=== PATIENT | female | born 1935 | race Asian ===

== ENCOUNTER 2016-11-17 04:23 | Observation (INO) | payer MEDICARE, OTHER ==
--- NOTE | ~2016-11-17 | EKG ---
PATIENT: YENI MORA UNIT #: [id number] Ventricular Rate: 82 BPM Atrial Rate: 82 BPM P-R Interval: 148 ms QRS Duration: 84 ms Q-T Interval: 378 ms QTC Calculation(Bezet): 441 ms P [place]: 73 degrees Calculated R [place]: -24 degrees Calculated T [place]: 25 degrees Diagnosis Line: Normal sinus rhythm Diagnosis Line: Inferior infarct , age undetermined Diagnosis Line: Abnormal ECG Diagnosis Line: No previous ECGs available Diagnosis Line: Confirmed by ELIZABETH HOWELL MD ([id number]) on 11/17/2016 Diagnosis Line: 10:34:08 PM INTERPRETING MD: DANTE SCHRADER
--- NOTE | ~2016-11-17 | DS ---
Unit #: [id number] #: [id number] Patient: YENI MORA [id number] [address] [address] [id number] I MR#: [id number] NAME: YENI MORA ROOM: 98006 Age: 81 Sex: F Admission Date: 11/17/2016 : 1935 Discharge Date: 11/17/2016 Attending Physician: Bay Willson M.D. Primary Care Physician: No Primary Care Physician DISCHARGE SUMMARY DISCHARGE DIAGNOSES 1. Darkened stool with a positive Hemoccult, stable hemoglobin and hematocrit. 2. Urinary tract infection with dysuria. 3. Essential hypertension. 4. Dyslipidemia. 5. History of major depression. CONSULTANTS None. IMAGING STUDIES None. LABS ON DAY OF DISCHARGE Patient's last glucose 119, BUN 30, creatinine 0.8, sodium 145, potassium 3.9, chloride 106, CO2 26, calcium 9.3, total protein 7.5, albumin 3.5, total bilirubin 0.4, AST 39, ALT 20, alk phos 90, amylase 37, lipase 32, lactic acid was 1.1. CBC - WBC was 6.3, rbc's 3.86, hemoglobin 11.4, hematocrit 35.1, MCV 93.2, MCH 30.8, MCHC 33.1, RDW is 13.5, platelets is 179. PT is 9.2. Urinalysis consistent with a UTI. HOSPITAL COURSE The patient is a pleasant 81-year-old [place] female with a past medical history of major depression, dyslipidemia, essential hypertension, who was brought to the emergency department by her grandchildren, with the concern that she has not voided since last night. The patient lives at home with her children and there were concern about a couple of weeks ago she had a big bowel movement that was very darkened. There was concern at this time with dysuria and she was then brought to the emergency department. The patient denied flank pain, back pain, fever, nausea, vomiting or diarrhea. She had also denied epigastric pain. Patient told me that with the incident of having the dark stool, she had eaten a pot of beans that was cooked for a whole week, but from now to then the symptoms have resolved. She denies hematochezia or melena at this time. With regard to her UTI, since there is no signs of sepsis, recommending that patient be discharged home with Ceftin 300 mg orally twice daily, as well as Flomax. She was able to void in the emergency department. I have spoken to patient and her grandchildren to please followup with the primary care physician within one to two weeks to look out for any signs of diarrhea or no urine output over a course of 24 hours. Asking that patient be given some contact information for Dr. Molina for any ongoing additional concerns for melena or hematochezia could be assessed as an outpatient by Dr. Molina. Unit #: [id number] #: [id number] Patient: YENI MORA DISCHARGE CONDITION Stable. DIET Heart healthy with no restriction. ACTIVITY Ambulate as was prior to hospitalization, as tolerated. DISCHARGE MEDICATIONS 1. Flomax 0.4 mg orally taken at bedtime. A full prescription was given for 14 days. 2. Paxil 10 mg orally at bedtime. 3. Lipitor 80 mg orally at bedtime. 4. Amlodipine with benazepril 5/20 one capsule orally daily. 5. Zantac 150 mg orally daily. 6. I do not recommend to continue with Mobic. 7. Ceftin 300 mg orally twice daily for next seven days. Dictated by... Errol Madison PA-C for Bay Willson M.D. RIOS/wilma TD: 11/18/2016 07:54 JOB #: [id number] DISCHARGE SUMMARY Page 1 of 1 X X DISCHARGE SUMMARY
--- NOTE | ~2016-11-17 | HP ---
Unit #: [id number] #: [id number] Patient: YENI MORA [id number] [address] [place], [place] [address] [id number] I MR#: [id number] NAME: YENI MORA ROOM: 91624 Age: Sex: F Admission Date: 11/17/2016 : 1935 Attending Physician: Bay Willson M.D. Primary Care Physician: Primary Care Physician No HISTORY AND PHYSICAL PRIMARY CARE PHYSICIAN The patient does not remember her primary care physician's name. CHIEF COMPLAINT No urination on the evening prior to admission. HISTORY OF PRESENT ILLNESS The patient is a 81-year-old [place] female with past medical history of essential hypertension, dyslipidemia, major depression, who presented to the emergency department due to no urination since the past evening. The patient states that she was not able to urinate the whole evening prior to admission. At around 1 a.m., the patient's children whom she lives with, called her grandson up who speaks Albanian to bring her to the emergency department for concerns of no urination. Of note, patient's children were also concerned about an episode of diarrhea with black stool noted to be about two weeks prior to admission. The patient tells me that, at that time, she had eaten a whole pot of black saldana that was in the refrigerator for one week. Following that, she had two big bouts of diarrhea where it was all over her bed sheets and the family had concern due to the stool being dark with the evening prior to admission concern with no urination. The patient was brought to the emergency department for further evaluation. On exam, the patient had denied symptoms of back pain, dysuria, gross hematuria or any fevers. The patient denies nausea, vomiting or diarrhea on the day that she was seen in the emergency department. In the emergency department, she did have Hemoccult positive stool and after assessment with urinalysis she was found to have a UTI. There was concern that patient's hemoglobin had dropped when she was seen at 3:50, from 11.6 to 10.1 at 6:33. Therefore, the hospital medicine group was asked to assess the patient for anemia workup as well as a UTI. At the time of my evaluation, patient again complains of no symptoms with urination except that she had not voided the evening prior to admission. The patient tells me that she is at her baseline in terms of energy and oral intake. She denies melena or gross hematuria. The patient's vitals were stable at the time of my assessment, therefore, I had recommended for repeat hemoglobin and hematocrit which was stable. The patient has no overt signs of bleeding. She has no back pain, no dysuria, and prior to discharge from the emergency department, she was able to void. Therefore, I had recommended the patient be discharged home in stable condition to follow up with the primary care physician with any additional concern for no urine output. I have stressed to patient, as well as her three grandchildren who were present in the emergency department, that if patient had these symptoms of oliguria, no urine output in 24 hours, that Unit #: [id number] #: [id number] Patient: YENI MORA she please present back to the emergency department for further evaluation and if there are any further concerns with GI bleed, she was given the phone number for Dr. Manjeet Molina, gastroenterology, so that she may follow up with Dr. Molina. PAST MEDICAL HISTORY 1. Essential hypertension. 2. Dyslipidemia. 3. Major depression. HOME MEDICATIONS 1. Amlodipine with benazepril one capsule orally daily. 2. Ranitidine 150 mg p.o. b.i.d. 3. Meloxicam 7.5 mg p.o. b.i.d. 4. Paroxetine 10 mg p.o. h.s. 5. Atorvastatin 80 mg p.o. daily. ALLERGIES No known drug allergies. SOCIAL HISTORY The patient lives with her children and her grandchildren come around to assist her and her children with regard to patient's medical conditions. The patient denied smoking history, denied alcohol history and denied any other illicit drugs. Denied all IV drug usage. FAMILY HISTORY Noncontributory. REVIEW OF SYSTEMS All are campbell negative except for those mentioned in the History and Physical. PHYSICAL EXAMINATION VITAL SIGNS: Temperature 98.0, pulse 84, respiratory rate 20, 97% oxygenation on room air, blood pressure 168/72. GENERAL: The patient is a 81-year-old female who is awake, alert oriented times 3 in no apparent distress. HEENT: Pupils were equally round and reactive to light and accommodation. Anicteric sclerae. No conjunctival pallor. Oropharynx with moist mucous membranes. No erythema or exudate. NECK: Supple. No lymphadenopathy, no thyromegaly, no JVD. LUNGS: Clear to auscultation bilaterally. HEART: Regular rate and rhythm. ABDOMEN: Soft, nontender, nondistended. Positive bowel sounds. No appreciable hepatosplenomegaly. EXTREMITIES: No cyanosis, no clubbing, no edema. Pedal pulses were 2/4. Skin is warm, moist without rash. No evidence of any or cellulitis of the bilateral lower extremity or upper extremity. NEUROLOGIC: Cranial nerves II-XII are grossly intact. Sensory, strength and deep tendon reflexes are all normal. SKIN: Warm. No drainage, no discharge, no rashes noted. DIAGNOSTIC STUDIES LABORATORY: BMP glucose 119, BUN 30, creatinine 0.8, sodium 141, potassium 3.9, chloride 106, CO2 of 26, calcium 9.3, total protein 7.5, albumin 3.5, total bilirubin 0.4, AST 39, ALT 20, alkaline phosphatase 90, amylase 37, lipase 32. We assess a lactic acid which was 1.1. CBC with Unit #: [id number] #: [id number] Patient: YENI MORA WBC of 6.3, RBC 3.28, hemoglobin 11.4, hematocrit 35.0, MCV 93.2, MCH 30.8, MCHC 33.1, RDW 13.5, platelets 179, MPV 9.2. IMAGING: No diagnostic imaging evaluated. ASSESSMENT AND PLAN 1. Hemoccult positive blood in the stool with no overt signs of bleeding. Hemoglobin and hematocrit are stable at this time. Patient is to follow up with her primary care physician and/or Dr. Molina for any further concerns with gastrointestinal bleed. 2. Urinary tract infection, Escherichia coli, sensitive to cephalosporins. She was discharged on Ceftin orally for the next 7 days. 3. History of essential hypertension. Patient's blood pressure has been stable throughout the entire time of observation. 4. Chronic normocytic normochromic anemia, likely related to anemia of chronic disease. Patient can follow up with her primary care physician for this. 5. Major depressive disorder, stable on SSRI. Follow up with primary care physician for this. 6. History of dyslipidemia. Continue with atorvastatin and follow up with primary care physician for this. The patient was seen and evaluated. With regard to her UTI, she had no signs of systemic infection. There was concern that she did have Hemoccult positive stool but her hemoglobin and hematocrit had been stable during the entire of observation. She can follow up with her primary care physician and/or Dr. Molina for any further workup for this. DISPOSITION The patient was discharged in stable condition. NOTE She was given a prescription for Flomax 0.4 mg to be taken h.s. I discussed this with patient and her grandchildren. As the Flomax may result in hypotension, the patient should take this at bedtime. A prescription for two weeks was given. Dictated by Errol Madison PA-C for Cee Mercado/daylin TD: 11/22/2016 18:38 JOB #: [id number] Unit #: [id number] #: [id number] Patient: YENI MORA HISTORY AND PHYSICAL Page 1 of 1 X X HISTORY AND PHYSICAL
[2016-11-17 04:07] LABS: BASOPHIL% 0.4 % (0-2.5); EOSINOPHIL# 0.1 X10e3 (0-0.7); EOSINOPHIL% 1.3 % (0.0-7.0); HEMATOCRIT 35.1 % (35.0-45.0); HEMOGLOBIN 11.6 gm/dL (12.0-16.0); LYMPHOCYTE# 1.2 X10e3 (1.0-3.5); LYMPHOCYTE% 15.8 % (17.0-45.0); MEAN CELL VOLUME 93.1 FL (83-96); MEAN CORPUSCULAR HEMOGLOBIN 30.9 PG (28-34); MEAN CORPUSCULAR HGB CONC 33.1 g/dL (30-36); MEAN PLATELET VOLUME 8.7 FL (6.5-11.5); MONOCYTE# 1.1 X10e3 (0-1.0); MONOCYTE% 14.5 % (3.0-12.0); NEUTROPHIL# 5.2 X10e3 (1.5-7.1); PLATELET COUNT 206 X10e3 (140-420); RED BLOOD COUNT 3.76 X10e (3.90-5.30); RED CELL DISTRIBUTION WIDTH 13.3 % (11.0-15.5); WHITE BLOOD COUNT 7.7 X10e3 (4.0-10.5)
[2016-11-17 04:08] LABS: DIFF IND NO
[2016-11-17 04:19] LABS: URINE APPEARANCE CLOUDY; URINE BILIRUBIN NEG (NEG); URINE BLOOD TRACE (NEG); URINE COLOR YELLOW; URINE GLUCOSE NEG (NEG); URINE KETONE NEG (NEG); URINE LEUKOCYTE ESTERASE 2+ (NEG); URINE NITRATE POS (NEG); URINE PROTEIN TRACE (NEG); URINE SPECIFIC GRAVITY 1.018 (1.003-1.035)
[2016-11-17 04:22] LABS: CULTURE INDICATED? YES; URBCS1 AUWI 0-2 /[HPF] (0-2); URINE BACTERIA AUWI 4+ (NEGATIVE); URINE SQUAMOUS EPITHELIAL CELL MOD /[HPF]
[~2016-11-17 04:23] MED LIST: AMLODIPINE-BENA1 CAP PO; LIPITOR80 MG PO; MOBIC PO; PAXIL10 MG PO; ZANTAC150 M1 PO
[2016-11-17 04:32] LABS: ALBUMIN SERUM 3.5 g/dL (3.5-5.0); BILIRUBIN, DIRECT 0.1 mg/dL (0.0-0.2); BILIRUBIN,INDIRECT 0.3 mg/dL (0.0-0.9); BILIRUBIN,TOTAL 0.4 mg/dL (0.2-2.0); BUN/CREATININE RATIO 37.5; CALCIUM SERUM 9.3 mg/dL (8.4-10.2); CREATININE SERUM 0.8 mg/dL (0.6-1.4); GLOM FILT RATE Estimated 70.2 mL/min (>60); POTASSIUM 3.9 mmol/L (3.5-5.1); PROTEIN TOTAL SERUM 7.5 g/dL (6.0-8.3)
[2016-11-17] MEDS ORDERED: AMLODIPINE-BENA1 CAP PO (04:34)
[2016-11-17 04:37] LABS: U HYALINE CASTS AUWI 0-2 /[LPF]; URINE GRANULAR CAST 0-2 /[HPF]
[2016-11-17 07:02] LABS: BASOPHIL% 0.6 % (0-2.5); EOSINOPHIL# 0.1 X10e3 (0-0.7); EOSINOPHIL% 1.5 % (0.0-7.0); HEMATOCRIT 30.6 % (35.0-45.0); HEMOGLOBIN 10.1 gm/dL (12.0-16.0); LYMPHOCYTE# 1.2 X10e3 (1.0-3.5); LYMPHOCYTE% 19.2 % (17.0-45.0); MEAN CELL VOLUME 93.2 FL (83-96); MEAN CORPUSCULAR HEMOGLOBIN 30.8 PG (28-34); MEAN CORPUSCULAR HGB CONC 33.1 g/dL (30-36); MEAN PLATELET VOLUME 9.2 FL (6.5-11.5); MONOCYTE% 15.1 % (3.0-12.0); NEUTROPHIL% 63.6 % (40-75); PLATELET COUNT 179 X10e3 (140-420); RED BLOOD COUNT 3.28 X10e (3.90-5.30); RED CELL DISTRIBUTION WIDTH 13.5 % (11.0-15.5); WHITE BLOOD COUNT 6.3 X10e3 (4.0-10.5)
[2016-11-17 07:05] LABS: DIFF IND NO
[2016-11-17 09:55] LABS: HEMATOCRIT 35.1 % (35.0-45.0); HEMOGLOBIN 11.4 gm/dL (12.0-16.0)
[2017-01-21] MEDS ORDERED: FLOMAX0.4 M1 DOB (08:20)
[2017-01-21] MEDS ORDERED: KETOROLAC TROMET5 M2 (08:20)
== END 2016-11-17 12:00 | disposition home or self-care (01) ==
LOC: CED 04:23 → CEDOF 08:12
PROVIDERS: Internal Medicine; Nurse Practitioner Family
DX: R19.5 Other fecal abnormalities (principal); N39.0 Urinary tract infection, site not specified; R30.0 Dysuria; I10 Essential (primary) hypertension; E78.5 Hyperlipidemia, unspecified; F32.9 Major depressive disorder, single episode, unspecified; Z79.899 Other long term (current) drug therapy; Z79.01 Long term (current) use of anticoagulants
CPT/HCPCS: 36415; 51702; 80048; 80076; 81003; 82150; 83605; 83690; 85014; 85018; 85025; 86850; 86900; 86901; 87086; 87088; 87186; 93005; 96365; 96374; 96375; 99285; C9113; G0378; J0696

== ENCOUNTER 2016-12-12 09:09 | Emergency (ER) | payer MEDICARE, OTHER ==
--- NOTE | ~2016-12-12 | CT2 ---
[facility] A Service of [facility] RADIOLOGY TEXT RESULTS PATIENT: YENI MORA LOCATION: [facility] : 37 UNIT #: [id number] AGE: [address]: Darryl Carroll MD SEX: F ORDER DR: [id number] [facility] [address] [place], [place] [address] [id number] E MR#: [id number] Acc #: [id number] NAME: YENI MORA : 1935 SEX: F STUDY DATE/TIME: 12/12/2016 12:13 UNIT: [facility] ROOM: STUDY DESCRIPTION: CT Abd and Pelv W Cont Attending Physician: Darryl Carroll M.D. Ordering Physician: Darryl Carroll M.D. Primary Care Physician: No Primary Care Physician MEDICAL IMAGING REPORT This report is preliminary unless electronic signature is present EXAM CT abdomen and pelvis with IV contrast COMPARISON None. INDICATION 41-year-old female with mid abdominal pain and constipation for [address] imaging of the abdomen and pelvis was performed after IV administration of 100 mL of Isovue-370. Coronal and sagittal reformats were constructed. This CT exam was performed with one or more of the following radiation dose reduction techniques: automatic exposure control, adjustment of mA and/or kV according to patient size, and iterative reconstruction. FINDINGS Mediastinum appears widened on the layout former topogram, perhaps in part due to supine positioning. There is S-shaped thoracolumbar scoliosis. There is a large hiatal hernia left lower chest. There is diffuse osteopenia. There is multilevel degenerative facet disease of the lumbar spine. There is also multilevel degenerative disc disease of the lumbar spine and of the lower thoracic spine. There is height loss of the L2 vertebral body which appears diffuse and is at the apex of the patient's levoscoliosis of the lumbar spine. This may be chronic in nature. No definite acute fracture line is seen. No evidence of paravertebral hematoma. There is multilevel neural foraminal narrowing and central canal stenosis of the lumbar spine due to degenerative disc disease and degenerative facet hypertrophy. Calcified granuloma in the right middle lobe. Subsegmental atelectasis noted in the lung bases. Mild emphysema. [facility] A Service of [facility] RADIOLOGY TEXT RESULTS PATIENT: YENI MORA [id number] 37 UNIT #: [id number] AGE: [address]: Darryl Carroll MD SEX: F ORDER DR: The liver, gallbladder, pancreas, spleen, adrenal glands and kidneys are unremarkable. No hydronephrosis or hydroureter. No renal or ureteral calculi. Mild fluid distension of the urinary bladder. There is a diverticulum in the posterior lateral right aspect of the urinary bladder measuring up to 3 cm x 1.8 cm. No adnexal masses. Uterus is unremarkable. Mild diverticulosis in the sigmoid colon. There is moderate diffuse colonic stool burden, without evidence of obstructing lesion or stricture. No evidence of small bowel obstruction. No free fluid or pneumoperitoneum. No evidence of adenopathy. No evidence of acute appendicitis. There are calcifications at the origins of the celiac, superior mesenteric, and bilateral renal arteries. There is associated mild stenosis of both the celiac and superior mesenteric arteries. There is tortuosity of the abdominal aorta which is diffusely calcified. There is ectasia of the infrarenal abdominal aorta without aneurysm. Calcifications extend to the iliac arteries and femoral arteries. IMPRESSION 1. No acute findings in the abdomen, pelvis, or imaged lower chest. 2. There is apparent mediastinal widening superiorly, not included in the field of view on CT but seen on layout former topogram. If the patient is asymptomatic, one could consider CT chest evaluation as an outpatient for further characterization or, alternatively, standard PA and lateral views of the chest as an outpatient as the findings may be artifactually related to supine positioning. 3. Moderate-sized hiatal hernia which is not accounting for the mediastinal widening. 4. Height loss of the L2 vertebral body which appears diffuse. No evidence of acute fracture is seen and this is at the apex of the patient's marked levoscoliosis and may be chronic in nature. No current evidence of an acute fracture is seen, but clinical correlation is recommended. There are multilevel degenerative disc and degenerative facet changes of the lumbar spine causing multilevel neural foraminal or central canal stenosis. 5. Mild emphysema. 6. 3 cm diverticulum of the posterolateral aspect of the right urinary bladder. 7. Mild diverticulosis without evidence of acute diverticulitis. 8. Calcifications at the origins of the celiac and superior mesenteric artery with mild associated stenosis. Dictated by... Lm Kaplan M.D. THIS IS AN ELECTRONICALLY VERIFIED REPORT Lm Kaplan M.D. at 12/16/2016 8:19 AM [facility] A Service of [facility] RADIOLOGY TEXT RESULTS PATIENT: YENI MORA [id number] 37 UNIT #: [id number] AGE: [address]: Darryl Carroll MD SEX: F ORDER DR: Carolina TD: 12/12/2016 14:42 JOB #: [id number] MEDICAL IMAGING REPORT Page 1 of 1 COPY
[2016-12-12 09:32] LABS: BASOPHIL# 0.1 X10e3 (0-0.3); EOSINOPHIL# 0.5 X10e3 (0-0.7); EOSINOPHIL% 5.7 % (0.0-7.0); HEMOGLOBIN 11.8 gm/dL (12.0-16.0); LYMPHOCYTE# 2.6 X10e3 (1.0-3.5); LYMPHOCYTE% 33.3 % (17.0-45.0); MEAN CELL VOLUME 93.7 FL (83-96); MEAN CORPUSCULAR HGB CONC 32.1 g/dL (30-36); MEAN PLATELET VOLUME 8.2 FL (6.5-11.5); MONOCYTE# 0.9 X10e3 (0-1.0); MONOCYTE% 11.6 % (3.0-12.0); NEUTROPHIL# 3.8 X10e3 (1.5-7.1); NEUTROPHIL% 48.4 % (40-75); PLATELET COUNT 259 X10e3 (140-420); RED BLOOD COUNT 3.94 X10e (3.90-5.30); WHITE BLOOD COUNT 7.9 X10e3 (4.0-10.5)
[2016-12-12 09:38] LABS: DIFF IND NO
[2016-12-12 09:57] LABS: URINE SOURCE CLEAN CATCH
[2016-12-12 10:04] LABS: URINE APPEARANCE CLEAR; URINE BILIRUBIN NEG (NEG); URINE BLOOD NEG (NEG); URINE COLOR YELLOW; URINE GLUCOSE NEG (NEG); URINE KETONE NEG (NEG); URINE LEUKOCYTE ESTERASE NEG (NEG); URINE NITRATE NEG (NEG); URINE PROTEIN NEG (NEG); URINE SPECIFIC GRAVITY 1.016 (1.003-1.035)
[2016-12-12 10:07] LABS: ALBUMIN SERUM 3.5 g/dL (3.5-5.0); ALKALINE PHOSPHATASE 77 U/L (32-92); ALT (SGPT) 13 U/L (10-40); AMYLASE 39 U/L (0-46); AST (SGOT) 20 U/L (10-42); BILIRUBIN,TOTAL 0.5 mg/dL (0.2-2.0); BLOOD UREA NITROGEN 14 mg/dL (9-23); BUN/CREATININE RATIO 15.55; CALCIUM SERUM 9.1 mg/dL (8.4-10.2); CARBON DIOXIDE 27 mmol/L (22-31); CHLORIDE 100 mmol/L (100-111); CREATININE SERUM 0.9 mg/dL (0.6-1.4); GLOM FILT RATE Estimated 60.9 mL/min (>60); GLUCOSE FASTING 111 mg/dL (70-110); LIPASE 24 U/L (22-51); POTASSIUM 4.2 mmol/L (3.5-5.1); SODIUM 135 mmol/L (135-145)
[2016-12-12 10:08] LABS: BILIRUBIN, DIRECT <0.1 mg/dL (0.0-0.2); BILIRUBIN,INDIRECT 0.4 mg/dL (0.0-0.9)
[2016-12-12 10:10] LABS: CULTURE INDICATED? NO
[2017-01-21] MEDS ORDERED: KETOROLAC TROMET5 M2 (08:20)
[2017-01-21] MEDS ORDERED: FLOMAX0.4 M1 DOB (08:20)
== END 2016-12-12 14:20 | disposition home or self-care (01) ==
LOC: CED 09:09
PROVIDERS: Emergency Medicine
DX: R10.84 Generalized abdominal pain (principal); Z79.899 Other long term (current) drug therapy
CPT/HCPCS: 36415; 74177; 80048; 80076; 81003; 82150; 83690; 85025; 96361; 96374; 99284; J2270; Q9967

== ENCOUNTER → 2017-01-21 | Day surgery (SDC) | payer MEDICARE, OTHER ==
[~2017-01-21] MED LIST changes: +FLOMAX0.4 M1 DOB; +KETOROLAC TROMET5 M2
--- NOTE | ~2017-01-21 | OR ---
Unit #: [id number] #: [id number] Patient: YENI BEASLEY [id number] [address] [place], [place] [address] [id number] O MR#: [id number] NAME: YENI BEASLEY ROOM: Date of Procedure: 01/21/2017 Admission Date: 01/21/2017 Surgeon: Manjeet Molina M.D. : 1935 Attending Physician: Manjeet Molina M.D. Primary Care Physician: Primary Care Physician No OPERATIVE REPORT PREOPERATIVE DIAGNOSES Hematochezia and anemia. PROCEDURES PERFORMED Colonoscopy and biopsies. POSTOPERATIVE DIAGNOSES The procedure was done after giving extra prep to the patient and several hours after presentation. A digital rectal examination showed a large rectal prolapse. After reducing it, no palpable masses were felt in the rectum. DESCRIPTION OF PROCEDURE Lubricated tip of the Olympus video colonoscope was inserted through the anus and advanced under direct vision. The scope was advanced past rectum into the sigmoid colon. An area of localized ulcer was seen. This was about 2.5 cm in size with grayish-white ulcer base and surrounding erythema. The overall appearance is however were benign that of a solitary ulcer. Surrounding area also showed few diverticula. The scope tip was then navigated all the way up to cecum with visualization of the ileocecal valve and the appendiceal orifice. Preparation was excellent with good visualization and photodocumentation was obtained. Last few inches of the terminal ileum were also visualized after intubation of the ileocecal valve and appeared normal. Successive segments of the colonic mucosa were examined upon withdrawal and appeared unremarkable except for the scant diverticula seen in the left side, and a solitary ulcer was seen in the sigmoid colon. Biopsies were obtained from the solitary ulcer and sent for histology. Although, the patient did not have any internal hemorrhoids, a large rectal prolapse was seen, which was reducible, but frequently prolapsed with minimal abdominal pressure. The scope was then withdrawn and the patient returned to recovery area. MANAGEMENT PLAN The patient will be seen in the office in 8 to 10 weeks' time and discussion will be held regarding surgical referral for treatment of rectal prolapse. Dictated by... Manjeet Molina M.D. Unit #: [id number] #: [id number] Patient: YENI BEASLEY/jose daniel TD: 01/21/2017 18:37 JOB #: [id number] CC: Elba Beasley M.D. OPERATIVE REPORT Page 1 of 1 X Manjeet Molina MD PROCEDURE OPERATIVE NOTE
--- NOTE | ~2017-01-21 | OR ---
Unit #: [id number] #: [id number] Patient: YENI BEASLEY [id number] [address] [place], [place] [address] [id number] O MR#: [id number] NAME: YENI BEASLEY ROOM: Date of Procedure: 01/21/2017 Admission Date: 01/21/2017 Surgeon: Manjeet Molina M.D. : 1935 Attending Physician: Manjeet Molina M.D. Primary Care Physician: No Primary Care Physician PROCEDURE OPERATIVE NOTE PREOPERATIVE DIAGNOSIS The patient presented with a history of possible melena or hematochezia and anemia. POSTOPERATIVE DIAGNOSIS Upper endoscopy: The patient has a medium sized hiatus hernia, otherwise normal examination up to the third part of the duodenum. Colonoscopy: Large rectal prolapse was seen, which was reduced temporarily. However, the patient almost had no colonic prep whatsoever and, therefore, procedure was terminated. PROCEDURE PERFORMED Upper GI endoscopy and attempted colonoscopy. RECOMMENDATION At the patient's age of 81, it might be reasonable not to do any further evaluation. She is also extremely hesitant to take additional prep or prep in the future. In fact, she refused to talk with my nurse practitioner in the office. ANESTHESIA MAC. PROCEDURE Following detailed explanation of the potential risks and complications of an upper endoscopy and colonoscopy, namely perforation, bleeding and complications related to sedation, the patient was brought to the GI lab and laid in the left lateral decubitus position. The lubricated tip of the Olympus video upper endoscope was passed through the bite block into the proximal esophagus under direct vision. The entire esophageal mucosa was examined and appeared normal. The Z line was nicely demarcated, there being no esophagitis. The patient did have a medium sized hiatus hernia. The scope was then advanced to the gastric cavity, and the latter was insufflated. The mucosa of the fundus, body and antrum was examined and appeared unremarkable. The pylorus was intubated with visualization of the normal duodenal bulb and second and third parts of the duodenum. Upon withdrawal and retroflexion, the incisura, cardia and greater curve were examined, and no additional findings were noted. The scope was then withdrawn into the distal esophagus. The entire esophageal mucosa was examined all the way up to the pharynx. No additional findings were noted. The examination table was then turned 180 degrees. The patient was Unit #: [id number] #: [id number] Patient: YENI BEASLEY positioned for a colonoscopy. The patient was found to have a large rectal prolapse on perianal and rectal examination. Additional examination of the rectum was done, which was normal. No masses were felt. The lubricated tip of the Olympus video colonoscope was inserted through the anus and advanced under direct vision. The patient was found to have essentially no colonic prep whatsoever, with copious amounts of stool in the colon and rectosigmoid. The scope was then withdrawn. The patient was returned to the recovery area. She tolerated the procedure without any postprocedure complications. Dictated by... Cee Scott TD: 01/21/2017 11:16 JOB #: [id number] CC: Elba Beasley M.D. PROCEDURE OPERATIVE NOTE Page 1 of 1 X Manjeet Molina MD X PROCEDURE OPERATIVE NOTE
== END | disposition home or self-care (01) ==
LOC: COPS 06:00
DX: K51.90 Ulcerative colitis, unspecified, without complications (principal); K44.9 Diaphragmatic hernia without obstruction or gangrene; K57.30 Diverticulosis of large intestine without perforation or abscess without bleeding; K62.3 Rectal prolapse; Z79.899 Other long term (current) drug therapy
CPT/HCPCS: 88305; 88341; 88342